=== PATIENT | female | born 1950 | race Caucasian/White ===

== ENCOUNTER → 2017-03-24 | Outpatient (CLI) | payer MEDICARE, OTHER ==
[~2017-03-24] MED LIST: DICL50TA4 PO
--- NOTE | 2017-03-24 13:58 | Diagnostic Imaging Report ---
PROCEDURE: US Thyroid. TECHNIQUE: Multiple real-time grayscale images were obtained of the thyroid in various projections. INDICATION: Thyroid ultrasound. FINDINGS: The previous thyroid ultrasound exam of 02/19/2016 noted a nonspecific 0.8 x 0.5 x 0.7 CM hypoechoic nodule in the mid portion of the left lobe. This finding seems similar to the outside study performed on 08/12/2015. On this exam, that finding is again evident and does not appear to have changed significantly. This area now measures 0.8 x 0.5 x 0.6 cm. The thyroid gland is otherwise homogeneous. The thyroid gland is not enlarged with the right lobe measuring 4.6 x 1.7 x 1.5 cm and the left lobe estimated to be 4.3 x 1.0 x 1.3 cm (normal gland size 4-5 x 2 x 2 CM or less). IMPRESSION: 1. The small hypoechoic nodule in the mid portion of the left lobe of the thyroid seen previously is again evident and appears stable. Most likely, this is a benign process. If further evaluation is desired, then a followup exam in one year would be recommended. 2. The overall appearance of the thyroid gland is otherwise stable. No new abnormality has developed. Dictated by: Dictated on workstation # [id number]
== END ==
LOC: RAD 12:11
PROVIDERS: ATTEND Family Medicine
DX: E04.1 Nontoxic single thyroid nodule (principal)
CPT/HCPCS: 76536

== ENCOUNTER → 2017-05-04 | Outpatient (CLI) | payer MEDICARE, OTHER ==
[~2017-05-04] MED LIST changes: +GADOBUTROL 10 MMOL/10 ML (GADAVIST) VIAL IV ONE
--- NOTE | 2017-05-04 15:54 | Diagnostic Imaging Report ---
PROCEDURE: MR imaging of the brain with and without contrast. TECHNIQUE: Multiplanar, multisequence MR imaging of the brain was performed with and without contrast. INDICATION: Severe headache, encephalitis. History of Lyme disease. Heat sensation on the top of the head and severe headache and numbness. 9 mL of Gadavist is administered intravenously. COMPARISON: Correlation with MRI from 11/30/2011 is reviewed. FINDINGS: The brain demonstrates no diffusion restriction to suggest an acute infarct or other diffusion abnormality. There is very minimal periventricular white matter T2 hyperintense signal abnormalities which relate to mild chronic microvascular ischemic changes. The brainstem and cerebellum demonstrate normal signal. No significant demyelinating lesions, brain edema or enhancing mass is identified. The lateral ventricles are normal in size. The pituitary gland is normal in size. No hypothalamic or pineal region mass. The central vascular flow-voids appear grossly unremarkable. The internal auditory canals and inner ear structures appear unremarkable. The paranasal sinuses and orbits appear grossly unremarkable. IMPRESSION: No acute infarct. No enhancing mass. Dictated by: Dictated on workstation # [id number]
== END ==
LOC: RAD 13:56
PROVIDERS: ATTEND Family Medicine
DX: R51 Headache (principal); R20.2 Paresthesia of skin
CPT/HCPCS: 70553

== ENCOUNTER → 2017-05-10 | Outpatient (CLI) | payer MEDICARE, OTHER ==
[~2017-05-10] MED LIST changes: -GADOBUTROL 10 MMOL/10 ML (GADAVIST) VIAL IV ONE
--- NOTE | 2017-05-11 08:54 | Diagnostic Imaging Report ---
Bilateral screening mammogram 2D views with tomosynthesis The current study was also evaluated with a Computer Aided Detection (CAD) system. Indication: Screening. No current complaints stated on the questionnaire. COMPARISON: 05/07/16. FINDINGS: The breasts are composed of scattered fibroglandular densities. There are occasional benign-appearing calcifications seen. There is a focal asymmetry in the lateral aspect of the left breast with increased density compared to the prior exams. It persists on tomographic views with no definitive mass. The right breast demonstrate no significant change. IMPRESSION: Lateral left breast focal asymmetry with increased density compared to the prior exam is indeterminate. Focal compression views evaluation and ultrasound is recommended. BI-RADS 0. ACR BI-RADS Category 0: Incomplete. (Needs additional imaging evaluation). Result letter will be mailed to the patient. Note: At least 10% of breast cancer is not imaged by mammography. Dictated by: Dictated on workstation # [id number]
== END ==
LOC: RAD 14:56
PROVIDERS: ATTEND Family Medicine
DX: Z12.31 Encounter for screening mammogram for malignant neoplasm of breast (principal); N64.89 Other specified disorders of breast
CPT/HCPCS: 77067

== ENCOUNTER → 2017-05-19 | Outpatient (CLI) | payer MEDICARE, OTHER ==
--- NOTE | 2017-05-19 15:32 | Diagnostic Imaging Report ---
EXAMINATION: Left breast diagnostic mammogram. Tomography was also performed. The current study was also evaluated with a Computer Aided Detection (CAD) system. INDICATION: Asymmetry along the outer aspect of the left breast. FINDINGS: The left breast demonstrates a focal asymmetry in the outer aspect which was evaluated with a true lateral view and focal compression views with tomography. No definitive underlying lesion is seen and this appears to relate to summation artifact of parenchyma. IMPRESSION: The focal asymmetry in the outer aspect of the left breast is felt to be summation artifact of parenchyma. An ultrasound evaluation is pending. ACR BI-RADS Category 0: Incomplete. (Needs additional imaging evaluation). Result letter will be mailed to the patient. Note: At least 10% of breast cancer is not imaged by mammography. Dictated by: Dictated on workstation # [id number]
--- NOTE | 2017-05-19 15:34 | Diagnostic Imaging Report ---
EXAMINATION: Left breast ultrasound. INDICATION: Outer left breast focal asymmetry. FINDINGS: No underlying abnormality when the area around the outer left breast is scanned. IMPRESSION: Negative study. The focal asymmetry in the outer aspect of the left breast is probably summation artifact of parenchyma. A 6 month followup mammogram is recommended to ensure stability or resolution. ACR BI-RADS Category 3: Probably benign findings. Result letter will be mailed to the patient. Note: At least 10% of breast cancer is not imaged by mammography. Dictated by: Dictated on workstation # [id number]
== END ==
LOC: RAD 12:57
PROVIDERS: ATTEND Family Medicine
DX: N64.89 Other specified disorders of breast (principal)
CPT/HCPCS: 76642

== ENCOUNTER → 2017-10-25 | Outpatient (CLI) | payer MEDICARE, OTHER ==
--- NOTE | 2017-10-25 13:41 | Diagnostic Imaging Report ---
Indication: Left breast density. The patient presents for six-month followup. Correlation is made with prior mammograms from 05/10/2017 and 05/19/2017. CC, MLO and mediolateral 3D tomography of the left breast was performed. The focal asymmetry in the lateral left breast best seen on the cc view is stable and most likely represents fibroglandular tissue. No discrete mass is identified. No suspicious microcalcifications are identified. The left axilla is unremarkable. Impression: BI-RADS category 1. No suspicious mammographic abnormality is identified. The area of asymmetry outer left breast appears to represent superimposed fibroglandular tissue. She will return in 6 months for bilateral screening mammography. ACR BI-RADS Category 1: Negative. Result letter will be mailed to the patient. Note: At least 10% of breast cancer is not imaged by mammography. Dictated by: Dictated on workstation # [id number]
== END ==
LOC: RAD 13:14
PROVIDERS: ATTEND Family Medicine
DX: R92.8 Other abnormal and inconclusive findings on diagnostic imaging of breast (principal)

== ENCOUNTER → 2018-02-18 | Outpatient (CLI) | payer MEDICARE, OTHER ==
--- NOTE | 2018-02-18 12:53 | Diagnostic Imaging Report ---
INDICATION: Left neck fullness. Right lobe of the thyroid measures 4.0 x 1.6 x 1.5 cm and the left lobe measures 3.5 x 1.2 x 1.2 cm. Subcentimeter thyroid nodules are present. A circumscribed hypoechoic nodule left lobe measures 8 mm x 5 mm x 7 mm. No associated microcalcifications are seen. A nodule in the right aspect of the isthmus measures 6 mm x 8 mm. No microcalcifications are seen. No other abnormalities are detected. IMPRESSION: Bilateral subcentimeter thyroid nodules. No dominant thyroid mass is detected. Dictated by: Dictated on workstation # [id number]
--- NOTE | 2018-02-18 12:54 | Diagnostic Imaging Report ---
PROCEDURE: US carotid duplex, bilateral. TECHNIQUE: Multiple real-time grayscale images were obtained over the carotid arteries in various projections, bilaterally. Additional duplex Doppler and color Doppler images were also obtained. INDICATION: Memory loss and mental status changes. FINDINGS: There is mild plaquing identified in the proximal left ICA. The right carotid system is unremarkable. The velocities are normal bilaterally. No velocity elevation or stenosis is seen. Both vertebral arteries demonstrate antegrade flow. IMPRESSION: No evidence of a hemodynamically significant stenosis. Parameters based on the consensus panel Barroso-Scale and Doppler ultrasound criteria published May 2003, Radiology, Volume 229. DOPPLER (peak systolic velocity M/S Right Left CCA .64 .89 ICA Proximal .61 .43 ICA Mid .65 .59 ICA Distal .59 .83 RATIO 1.0 .9 ECA .88 .70 VERT .33 .38 Dictated by: Dictated on workstation # [id number]
== END ==
LOC: RAD 11:39
PROVIDERS: ATTEND Family Medicine
DX: E04.2 Nontoxic multinodular goiter (principal); R41.3 Other amnesia
CPT/HCPCS: 76536; 93880

== ENCOUNTER → 2018-03-28 | Outpatient (CLI) | payer MEDICARE, OTHER ==
[~2018-03-28] MED LIST changes: +IOHEXOL 350 MG/ML 100 ML (OMNIPAQUE 350) VIAL IV ONE; +NS 250 ML (IVPB) BAG IV ONE
--- NOTE | 2018-03-28 13:54 | Diagnostic Imaging Report ---
PROCEDURE: CT head with and without contrast. TECHNIQUE: Multiple contiguous axial images were obtained through the brain before and after the administration of intravenous contrast. INDICATION: Memory loss with headache and blurred vision. COMPARISON: No prior studies are available for comparison. FINDINGS: The ventricles and sulci are within normal limits. No sulcal effacement, midline shift, or hemorrhage is detected. No abnormal enhancement following contrast administration is seen. The cisterns are patent. Visualized paranasal sinuses are clear. IMPRESSION: Unremarkable pre and post contrast CT of the brain. Dictated by: Dictated on workstation # [id number]
== END ==
LOC: RAD 12:59
PROVIDERS: ATTEND Physician Assistant
DX: R51 Headache (principal); R41.3 Other amnesia; H53.8 Other visual disturbances; R41.82 Altered mental status, unspecified; Z86.19 Personal history of other infectious and parasitic diseases
CPT/HCPCS: 70470

== ENCOUNTER → 2018-04-21 | Outpatient (CLI) | payer MEDICARE, OTHER ==
[~2018-04-21] MED LIST changes: -IOHEXOL 350 MG/ML 100 ML (OMNIPAQUE 350) VIAL IV ONE; -NS 250 ML (IVPB) BAG IV ONE
--- NOTE | 2018-04-21 18:57 | Diagnostic Imaging Report ---
INDICATION: Routine screening. COMPARISON: Comparison is made with prior mammogram from 05/10/2017 and 05/07/2016. TECHNIQUE: 2D and 3D bilateral screening mammography was performed with CAD. FINDINGS: Scattered fibroglandular densities are identified bilaterally. The parenchymal pattern is stable. No mass or malignant appearing microcalcifications are seen. The axillae are unremarkable. IMPRESSION: No mammographic features suspicious for malignancy are identified. ACR BI-RADS Category 1: Negative. Result letter will be mailed to the patient. Note: At least 10% of breast cancer is not imaged by mammography. Dictated by: Dictated on workstation # [id number]
== END ==
LOC: RAD 14:06
PROVIDERS: ATTEND Physician Assistant
DX: Z12.31 Encounter for screening mammogram for malignant neoplasm of breast (principal)
CPT/HCPCS: 77067

== ENCOUNTER 2018-05-27 07:48 | Emergency (ER) | payer MEDICARE, OTHER ==
[~2018-05-27] VITALS: Ht 162.6 cm; Wt 86.2 kg
--- OUTSIDE RECORDS SUMMARY | 2018-05-27 08:12 | XMS REPORT | Continuity of Care Document ---
Author Author [facility] Organization [facility] Address Unknown Phone Unavailable Allergies Active Description Code Type Severity Reaction Onset Reported/Identified Relationship to Patient Clinical Status Yes amoxicillin [id number] Drug Allergy Severe N/A 09/23/2015 Yes clavulanic acid [id number] Drug Allergy Severe N/A 09/23/2015 Yes potato [id number] Drug Allergy Severe N/A 09/23/2015 Yes egg [id number] Drug Allergy Mild N/A 09/23/2015 Yes erythromycin base [id number] Drug Allergy Mild N/A 09/23/2015 Medications There is no data. Problems Date Dx Coded Attending Type Code Diagnosis Diagnosed By 09/23/2015 Ot 785.1 09/23/2015 Ot 298.9 09/23/2015 Ot 780.93 09/23/2015 Ot 784.3 09/23/2015 Ot 298.9 09/23/2015 Ot 780.93 09/23/2015 Ot 784.3 09/23/2015 MARY BETH TADEO DO Ot S80.01XA CONTUSION OF RIGHT KNEE, INITIAL ENCOUNT 09/23/2015 MARY BETH TADEO DO Ot W01.0XXA FALL SAME LEV FROM SLIP/TRIP W/O STRIKE 09/23/2015 MARY BETH TADEO DO Ot Y92.[address] [facility] [address] [facility] 09/23/2015 MARY BETH TADEO DO Ot Y99.8 OTHER EXTERNAL CAUSE STATUS 09/23/2015 Ot 785.1 09/23/2015 Ot 298.9 09/23/2015 Ot 780.93 09/23/2015 Ot 784.3 09/23/2015 Ot 298.9 09/23/2015 Ot 780.93 09/23/2015 Ot 784.3 11/05/2015 Ot 785.1 PALPITATIONS 11/05/2015 Ot 298.9 PSYCHOSIS NOS 11/05/2015 Ot 780.93 MEMORY LOSS 11/05/2015 Ot 784.3 APHASIA 11/05/2015 Ot 298.9 PSYCHOSIS NOS 11/05/2015 Ot 780.93 MEMORY LOSS 11/05/2015 Ot 784.3 APHASIA 02/19/2016 Ot 785.1 PALPITATIONS 02/19/2016 Ot 298.9 PSYCHOSIS NOS 02/19/2016 Ot 780.93 MEMORY LOSS 02/19/2016 Ot 784.3 APHASIA 02/19/2016 Ot 298.9 PSYCHOSIS NOS 02/19/2016 Ot 780.93 MEMORY LOSS 02/19/2016 Ot 784.3 APHASIA 02/20/2016 АНДРЕЙ JADE, SOMMER Loar Ot E04.1 NONTOXIC SINGLE THYROID NODULE 02/20/2016 АНДРЕЙ JADE, SOMMER L Ot R22.31 LOCALIZED SWELLING, MASS AND LUMP, RIGHT 02/28/2016 SOMMER CHIANG MD Ot E04.1 NONTOXIC SINGLE THYROID NODULE 02/28/2016 SOMMER CHIANG MD Ot R22.31 LOCALIZED SWELLING, MASS AND LUMP, RIGHT 03/13/2016 SOMMER CHIANG MD Ot E04.1 NONTOXIC SINGLE THYROID NODULE 03/13/2016 SOMMER CHIANG MD Ot R22.31 LOCALIZED SWELLING, MASS AND LUMP, RIGHT 05/07/2016 Ot 785.1 PALPITATIONS 05/07/2016 Ot 298.9 PSYCHOSIS NOS 05/07/2016 Ot 780.93 MEMORY LOSS 05/07/2016 Ot 784.3 APHASIA 05/07/2016 Ot 298.9 PSYCHOSIS NOS 05/07/2016 Ot 780.93 MEMORY LOSS 05/07/2016 Ot 784.3 APHASIA 05/07/2016 SOMMER CHIANG MD Ot E04.1 NONTOXIC SINGLE THYROID NODULE 05/07/2016 SOMMER CHIANG MD Ot R22.31 LOCALIZED SWELLING, MASS AND LUMP, RIGHT 05/07/2016 SOMMER CHIANG MD Ot Z12.31 ENCNTR SCREEN MAMMOGRAM FOR MALIGNANT NE 05/07/2016 SOMMER CHIANG MD Ot Z12.31 ENCNTR SCREEN MAMMOGRAM FOR MALIGNANT NE 05/18/2016 SOMMER CHIANG MD Ot Z12.31 ENCNTR SCREEN MAMMOGRAM FOR MALIGNANT NE 04/14/2017 SOMMER CHIANG MD Ot E04.1 NONTOXIC SINGLE THYROID NODULE 04/30/2017 SOMMER CHIANG MD Ot E04.1 NONTOXIC SINGLE THYROID NODULE 05/05/2017 SOMMER CHIANG MD L Ot R20.2 PARESTHESIA OF SKIN 05/05/2017 SOMMER CHIANG MD L Ot R51 HEADACHE 05/11/2017 SOMMER CHIANG MD L Ot R92.2 INCONCLUSIVE MAMMOGRAM 05/17/2017 SOMMER CHIANG MD Ot R92.2 INCONCLUSIVE MAMMOGRAM 05/20/2017 SOMMER CHIANG MD L Ot N64.89 OTHER SPECIFIED DISORDERS OF BREAST 05/26/2017 SOMMER CHIANG MD L Ot R20.2 PARESTHESIA OF SKIN 05/26/2017 SOMMER CHIANG MD L Ot R51 HEADACHE 06/01/2017 SOMMER CHIANG MD L Ot N64.89 OTHER SPECIFIED DISORDERS OF BREAST 06/01/2017 SOMMER CHIANG MD L Ot Z12.31 ENCNTR SCREEN MAMMOGRAM FOR MALIGNANT NE 06/11/2017 SOMMER CHIANG MD L Ot N64.89 OTHER SPECIFIED DISORDERS OF BREAST 06/14/2017 SOMMER CHIANG MD L Ot R20.2 PARESTHESIA OF SKIN 06/14/2017 SOMMER CHIANG MD L Ot R51 HEADACHE 07/02/2017 SOMMER CHIANG MD L Ot N64.89 OTHER SPECIFIED DISORDERS OF BREAST 10/19/2017 SOMMER CHIANG MD Ot R92.8 OTH ABN AND INCONCLUSIVE FINDINGS ON DX 10/26/2017 SOMMER CHIANG MD L Ot N64.89 OTHER SPECIFIED DISORDERS OF BREAST 10/26/2017 SOMMER CHIANG MD L Ot R92.8 OTH ABN AND INCONCLUSIVE FINDINGS ON DX 11/16/2017 SOMMER CHIANG MD L Ot R92.8 OTH ABN AND INCONCLUSIVE FINDINGS ON DX 03/29/2018 CHAN JAUREGUI Ot H53.8 OTHER VISUAL DISTURBANCES 03/29/2018 CHAN JAUREGUI Ot R41.3 OTHER AMNESIA 03/29/2018 CHAN JAUREGUI Ot R41.82 ALTERED MENTAL STATUS, UNSPECIFIED 03/29/2018 CHAN JAUREGUI L Ot R51 HEADACHE 03/29/2018 CHAN JAUREGUI L Ot Z86.19 PERSONAL HISTORY OF OTHER INFECTIOUS AND 04/07/2018 SOMMER CHIANG MD Ot E04.2 NONTOXIC MULTINODULAR GOITER 04/07/2018 SOMMER CHIANG MD Ot R41.3 OTHER AMNESIA 04/19/2018 CHAN JAUREGUI Ot Z12.31 ENCNTR SCREEN MAMMOGRAM FOR MALIGNANT NE 04/27/2018 CHAN JAUREGUI Ot Z12.31 ENCNTR SCREEN MAMMOGRAM FOR MALIGNANT NE 05/05/2018 SOMMER CHIANG MD Ot E04.2 NONTOXIC MULTINODULAR GOITER 05/05/2018 SOMMER CHIANG MD Ot R41.3 OTHER AMNESIA 05/16/2018 CHAN JAUREGUI Ot Z12.31 ENCNTR SCREEN MAMMOGRAM FOR MALIGNANT NE 05/20/2018 CHAN JAUREGUI Ot H53.8 OTHER VISUAL DISTURBANCES 05/20/2018 CHAN JAUREGUI Ot R41.3 OTHER AMNESIA 05/20/2018 CHAN JAUREGUI L Ot R41.82 ALTERED MENTAL STATUS, UNSPECIFIED 05/20/2018 CHAN JAUREGUI Ot R51 HEADACHE 05/20/2018 CHAN JAUREGUI Ot Z86.19 PERSONAL HISTORY OF OTHER INFECTIOUS AND Procedures There is no data. Results There is no data. Encounters ACCT No. Visit Date/Time Discharge Status Pt. Type Provider Facility Loc./Unit Complaint [id number] 04/21/2018 14:06:00 04/21/2018 23:59:59 CLS Outpatient CHAN JAUREGUI [facility] RAD SCREENING [id number] 03/28/2018 12:59:00 03/28/2018 23:59:59 CLS Outpatient CHAN JAUREGUI [facility] RAD HEADACHES,AMS,H/O LYMES [id number] 02/15/2018 14:12:00 02/15/2018 23:59:59 CLS Outpatient SOMMER CHIANG MD [facility] RAD LEFT NECK FULLNESS, MENTAL STATUS CHANGE [id number] 10/25/2017 13:14:00 10/25/2017 23:59:59 CLS Outpatient SOMMER CHIANG MD [facility] RAD R928 [id number] 05/19/2017 12:57:00 05/19/2017 23:59:59 CLS Outpatient SOMMER CHIANG MD [facility] RAD ABNORMAL MAMMO [id number] 05/10/2017 14:56:00 05/10/2017 23:59:59 CLS Outpatient SOMMER CHIANG MD [facility] RAD SCREENING [id number] 05/04/2017 13:56:00 05/04/2017 23:59:59 CLS Outpatient SOMMER CHIANG MD [facility] RAD SEVERE HEADACH X 4 DAYS,NUMBNESS OF FACE [id number] 03/24/2017 12:11:00 03/24/2017 23:59:59 CLS Outpatient SOMMER CHIANG MD [facility] RAD THYROID NODULE [id number] 05/07/2016 10:51:00 05/07/2016 23:59:59 CLS Outpatient SOMMER CHIANG MD [facility] RAD SCREENING [id number] 02/19/2016 12:31:00 02/19/2016 23:59:59 CLS Outpatient SOMMER CHIANG MD [facility] RAD AXILLA NODULE [id number] 09/23/2015 14:13:00 09/23/2015 15:56:00 DIS Emergency MARY BETH TADEO DO [facility] ER KNEE PAIN FROM FALL [id number] 05/27/2018 07:49:00 ACT Emergency YONY MARISCAL MD [facility] ER DIZZINESS [id number] 11/30/2011 09:41:00 Document Registration [id number] 11/26/2011 12:20:00 Document Registration [id number] 01/26/2011 10:07:00 Document Registration
[2018-05-27 09:24] LABS: BILIRUBIN,URINE NEGATIVE (NEGATIVE); CLARITY,URINE CLEAR; COLOR,URINE YELLOW; GLUCOSE, URINE (UA) NEGATIVE (NEGATIVE); KETONES,URINE NEGATIVE (NEGATIVE); LEUKOCYTE ESTERASE ,URINE NEGATIVE (NEGATIVE); NITRITE,URINE NEGATIVE (NEGATIVE); PH,URINE 7 (5-9); PROTEIN,URINE NEGATIVE (NEGATIVE); UROBILINOGEN,URINE NORMAL (NORMAL)
[2018-05-27 09:30] LABS: BACTERIA,URINE NEGATIVE /HPF; RBC,URINE 0-2 /HPF
[2018-05-27 09:56] LABS: BASOPHILS % (AUTO) 0 % (0-10); EOSINOPHILS # (AUTO) 0.2 10^3/uL (0.0-0.3); EOSINOPHILS % (AUTO) 2 % (0-10); HEMATOCRIT 46 % (35-52); HEMOGLOBIN 14.6 G/DL (11.5-16.0); LYMPHOCYTES # (AUTO) 1.1 X 10^3 (1.0-4.0); LYMPHOCYTES % (AUTO) 14 % (12-44); MEAN CORPUSCULAR HEMOGLOBIN 30 PG (25-34); MEAN CORPUSCULAR HGB CONC 32 G/DL (32-36); MEAN CORPUSCULAR VOLUME 93 FL (80-99); MEAN PLATELET VOLUME 11.9 FL (7.4-10.4); MONOCYTES # (AUTO) 0.3 X 10^3 (0.0-1.0); MONOCYTES % (AUTO) 4 % (0-12); NEUTROPHILS # (AUTO) 6.1 X 10^3 (1.8-7.8); NEUTROPHILS % (AUTO) 79 % (42-75); PLATELET COUNT 261 10^3/uL (130-400); RED BLOOD COUNT 4.92 10^6/uL (4.35-5.85); WHITE BLOOD COUNT 7.7 10^3/uL (4.3-11.0)
[2018-05-27 10:11] LABS: ALANINE AMINOTRANSFERASE 21 U/L (0-55); ALKALINE PHOSPHATASE 70 U/L (40-136); BILIRUBIN,TOTAL 0.4 MG/DL (0.1-1.0); BUN/CREATININE RATIO 28; CALCIUM 9.6 MG/DL (8.5-10.1); CARBON DIOXIDE 24 MMOL/L (21-32); CHLORIDE 108 MMOL/L (98-107); CREATININE SERUM 0.58 MG/DL (0.60-1.30); GFR ESTIMATED > 60; GLUCOSE 150 MG/DL (70-105); SODIUM 141 MMOL/L (135-145)
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
[2018-05-27] MEDS ORDERED: Antivert (10:49)
[2018-05-27 11:05] VITALS: BP 143/78
== END 2018-05-27 11:00 | disposition home or self-care (01) ==
LOC: EDUNIT# 07:48 → ER 07:49
DX: R42 Dizziness and giddiness (principal); Z88.0 Allergy status to penicillin; Z88.8 Allergy status to other drugs, medicaments and biological substances
CPT/HCPCS: 36415; 80053; 81000; 85025; 99283

== ENCOUNTER → 2018-06-02 | Outpatient (CLI) | payer MEDICARE, OTHER ==
[~2018-06-02] MED LIST changes: +Antivert; +IOHEXOL 350 MG/ML 100 ML (OMNIPAQUE 350) VIAL IV ONE; +NS 250 ML (IVPB) BAG IV ONE; +RECEIVED CONTRAST (Hold Metformin) IV SCH
[2018-06-02 13:12] LABS: BASOPHILS % (AUTO) 0 % (0-10); EOSINOPHILS # (AUTO) 0.3 10^3/uL (0.0-0.3); EOSINOPHILS % (AUTO) 3 % (0-10); HEMATOCRIT 46 % (35-52); HEMOGLOBIN 14.8 G/DL (11.5-16.0); LYMPHOCYTES # (AUTO) 1.6 X 10^3 (1.0-4.0); LYMPHOCYTES % (AUTO) 16 % (12-44); MEAN CORPUSCULAR HEMOGLOBIN 30 PG (25-34); MEAN CORPUSCULAR HGB CONC 32 G/DL (32-36); MEAN CORPUSCULAR VOLUME 94 FL (80-99); MEAN PLATELET VOLUME 11.4 FL (7.4-10.4); MONOCYTES # (AUTO) 0.6 X 10^3 (0.0-1.0); MONOCYTES % (AUTO) 6 % (0-12); NEUTROPHILS # (AUTO) 7.7 X 10^3 (1.8-7.8); NEUTROPHILS % (AUTO) 75 % (42-75); PLATELET COUNT 275 10^3/uL (130-400); RED BLOOD COUNT 4.92 10^6/uL (4.35-5.85); RED CELL DISTRIBUTION WIDTH 13.7 % (10.0-14.5); WHITE BLOOD COUNT 10.2 10^3/uL (4.3-11.0)
[2018-06-02 13:47] LABS: ALANINE AMINOTRANSFERASE 23 U/L (0-55); ALBUMIN 4.1 GM/DL (3.2-4.5); ALKALINE PHOSPHATASE 73 U/L (40-136); BILIRUBIN,TOTAL 0.4 MG/DL (0.1-1.0); BUN/CREATININE RATIO 29; CALCIUM 9.4 MG/DL (8.5-10.1); CARBON DIOXIDE 29 MMOL/L (21-32); CHLORIDE 105 MMOL/L (98-107); CREATININE SERUM 0.77 MG/DL (0.60-1.30); GFR ESTIMATED > 60; GLUCOSE 118 MG/DL (70-105); POTASSIUM 4.6 MMOL/L (3.6-5.0); SODIUM 142 MMOL/L (135-145); TOTAL PROTEIN 6.6 GM/DL (6.4-8.2)
[2018-06-02 13:50] LABS: ERYTHROCYTE SEDIMENTATION RATE 4 MM/HR (0-30)
--- NOTE | 2018-06-02 14:22 | Diagnostic Imaging Report ---
INDICATION: Dizziness and headache on the left-side as well as memory loss. CT HEAD: Comparison is made with prior CT of the head from 03/28/2018. The ventricles and sulci are within normal limits. No effacement, midline shift or hemorrhage is detected. Cisterns are patent. The visualized paranasal sinuses are clear. Mastoid air cells are well aerated. No abnormal enhancement is seen following contrast administration. IMPRESSION: Unremarkable pre- and postcontrast CT of the brain. CT NECK: Posterior nasopharynx and oropharynx are unremarkable. Parapharyngeal fat planes are within normal limits. Epiglottis and larynx are unremarkable. No thyroid mass is detected. Bilateral submandibular and parotid glands are symmetric. No cervical lymphadenopathy is seen. No fluid collections are identified. IMPRESSION: Unremarkable CT of the soft tissues of the neck. Dictated by: Dictated on workstation # [id number]
== END ==
LOC: RAD 12:52
PROVIDERS: ATTEND Physician Assistant
DX: R51 Headache (principal); R42 Dizziness and giddiness; R41.3 Other amnesia; R53.83 Other fatigue
CPT/HCPCS: 36415; 70470; 70492; 80053; 85025; 85652; 86141

== ENCOUNTER → 2018-06-17 | Outpatient (CLI) | payer MEDICARE, OTHER ==
[~2018-06-17] MED LIST changes: +GADOBUTROL 10 MMOL/10 ML (GADAVIST) VIAL IV ONE; -IOHEXOL 350 MG/ML 100 ML (OMNIPAQUE 350) VIAL IV ONE; -NS 250 ML (IVPB) BAG IV ONE; -RECEIVED CONTRAST (Hold Metformin) IV SCH
--- NOTE | 2018-06-17 18:11 | Diagnostic Imaging Report ---
INDICATION: Memory loss and dizziness and abnormal sensation. MRI brain obtained pre and post IV contrast. Comparison made with 05/04/2017. Diffusion-weighted images demonstrate no areas of signal abnormality. There are no extra-axial fluid collections. No intracranial hemorrhage. No intracranial mass or mass effect. No midline shift. The ventricles are normal in size and position. FLAIR images demonstrate no evidence of significant white matter disease. There is no evidence of recent or old hemorrhage. Post contrast images demonstrate no abnormal enhancing lesions. IMPRESSION: Negative MRI brain pre and post IV contrast. The findings have not changed compared with 05/04/2017. Dictated by: Dictated on workstation # [id number]
--- NOTE | 2018-06-17 18:29 | Diagnostic Imaging Report ---
PROCEDURE: MR angiography neck with and without contrast. TECHNIQUE: Pre and post contrast-enhanced MR angiography of the neck was performed. Source data was reformatted into rotating MIP projections. INDICATION: Memory loss, dizziness, and tunnel vision. FINDINGS: The aortic arch appears unremarkable. The subclavian arteries are unremarkable. The vertebral arteries bilaterally appear unremarkable. The bilateral common carotids are unremarkable. The carotid bifurcations are patent. The cervical internal carotid arteries are unremarkable. IMPRESSION: Unremarkable MRA neck. Dictated by: Dictated on workstation # [id number]
--- NOTE | 2018-06-17 18:30 | Diagnostic Imaging Report ---
PROCEDURE: MR angiography of the brain without the use of contrast. TECHNIQUE: 3D jdbu-[id number] MR angiography of the head was performed. Source data was reformatted into rotating MIP projections. INDICATION: Memory loss, dizziness, tunnel vision, [place] spotted fever. COMPARISON: Exam correlated with head CT, contrast assisted, 06/02/2018. Study also compared with brain MRI 05/04/2017. FINDINGS: The distal vertebrals, the basilar, and the customs opener verifier packer are unremarkable. Intracranial ICAs are unremarkable. The A1 segments, the A-comm, and the anterior cerebral arteries appear unremarkable. The bilateral middle cerebral arteries and their primary branches appear unremarkable. IMPRESSION: Unremarkable MRA head. Dictated by: Dictated on workstation # [id number]
== END ==
LOC: RAD 15:41
PROVIDERS: ATTEND Physician Assistant
DX: A77.0 Spotted fever due to Rickettsia rickettsii (principal); H53.489 Generalized contraction of visual field, unspecified eye; R53.83 Other fatigue; R41.3 Other amnesia
CPT/HCPCS: 70544; 70549; 70553

== ENCOUNTER → 2018-09-30 | Outpatient (CLI) | payer MEDICARE, OTHER ==
[~2018-09-30] MED LIST changes: -GADOBUTROL 10 MMOL/10 ML (GADAVIST) VIAL IV ONE
--- NOTE | 2018-09-30 13:11 | Diagnostic Imaging Report ---
PROCEDURE: US Thyroid. TECHNIQUE: Multiple real-time grayscale images were obtained of the thyroid in various projections. INDICATION: Left thyroid nodule. Correlation is made with prior thyroid ultrasound from 02/18/2018. The right lobe of the thyroid measures 4.1 x 1.5 x 1.5 cm and the left lobe measures 3.7 x 1.5 x 1.2 cm. Isthmus is approximately 5 mm in thickness. There is a nodule in the isthmus measuring approximately 6 mm x 8 mm, stable. Nodule in the left lobe measures 7 mm x 6 mm, similar to prior. No microcalcifications are seen. No new mass is detected. IMPRESSION: Stable subcentimeter thyroid nodules when compared examination from 02/18/2018. No dominant thyroid mass is detected. Dictated by: Dictated on workstation # [id number]
== END ==
LOC: RAD 11:11
PROVIDERS: ATTEND Physician Assistant
DX: E04.2 Nontoxic multinodular goiter (principal)
CPT/HCPCS: 76536

== ENCOUNTER → 2019-04-24 | Outpatient (CLI) | payer MEDICARE, OTHER ==
--- NOTE | 2019-04-24 12:13 | Diagnostic Imaging Report ---
INDICATION: Routine screening. COMPARISON: Comparison is made with prior mammograms from 04/21/2018 and 05/10/2017. TECHNIQUE: 2-D and 3-D bilateral screening mammography was performed. The current study was also evaluated with a Computer Aided Detection (CAD) system. 3-D tomosynthesis was also performed and reviewed. FINDINGS: Scattered fibroglandular densities are identified bilaterally. Benign calcifications are noted bilaterally. No mass or malignant-appearing microcalcifications are seen. The axillae are unremarkable. IMPRESSION: No mammographic features suspicious for malignancy are identified. ACR BI-RADS Category 2: Benign findings. Result letter will be mailed to the patient. Note: At least 10% of breast cancer is not imaged by mammography. Dictated by: Dictated on workstation # [id number]
== END ==
LOC: RAD 10:52
PROVIDERS: ATTEND Family Medicine
DX: Z12.31 Encounter for screening mammogram for malignant neoplasm of breast (principal)
CPT/HCPCS: 77067

== ENCOUNTER → 2019-09-26 | Outpatient (CLI) | payer MEDICARE, OTHER ==
--- NOTE | 2019-09-26 13:01 | Diagnostic Imaging Report ---
PROCEDURE: US Thyroid. TECHNIQUE: Multiple real-time grayscale images were obtained of the thyroid in various projections. INDICATION: Thyroid nodule. COMPARISON: September 30, 2018 and February 19, 2016. FINDINGS: The right lobe of thyroid gland measures 4.6 x 2.0 x 1.7 cm. It maintains a homogeneous echotexture without discrete nodule. The left lobe of thyroid gland measures 4.0 x 1.8 x 1.2 cm. A 0.8 x 0.6 x 0.5 cm ovoid hypoechoic nodule is noted within the mid left thyroid lobe, unchanged since 2016, and benign. No new nodules within the left thyroid lobe. 0.7 x 0.8 cm hypoechoic nodule within the isthmus is again identified, appearing stable to minimally more prominent than the prior examination. No new thyroid nodules. IMPRESSION: Subcentimeter isthmic thyroid nodule appears stable to slightly more prominent than the prior examination. Therefore, recommend a follow-up ultrasound in one year to reevaluate. Subcentimeter left thyroid nodule is unchanged since 2016 and benign. No new thyroid nodules. Dictated by: Dictated on workstation # [id number]
== END ==
LOC: RAD 10:52
PROVIDERS: ATTEND Family Medicine
DX: E04.2 Nontoxic multinodular goiter (principal)
CPT/HCPCS: 76536

== ENCOUNTER → 2020-04-25 | Outpatient (CLI) | payer MEDICARE, OTHER ==
--- NOTE | 2020-04-25 12:56 | Diagnostic Imaging Report ---
INDICATION: Routine screening. Comparison is made with prior mammogram from 04/24/2019 and 04/21/2018. 2-D and 3-D bilateral screening mammography was performed with CAD. Scattered fibroglandular densities are identified bilaterally. The parenchymal pattern is stable. No mass or malignant appearing microcalcifications are seen. Occasional benign calcifications are noted. Axillae are unremarkable. IMPRESSION: BI-RADS Category 2 No mammographic features suspicious for malignancy are identified. ACR BI-RADS Category 2: Benign findings. Result letter will be mailed to the patient. Note: At least 10% of breast cancer is not imaged by mammography. Dictated by: Dictated on workstation # [id number]
== END ==
LOC: RAD 10:39
PROVIDERS: ATTEND Family Medicine
DX: Z12.31 Encounter for screening mammogram for malignant neoplasm of breast (principal)
CPT/HCPCS: 77063; 77067

== ENCOUNTER 2020-06-14 20:06 | Emergency (ER) | payer MEDICARE, OTHER ==
[~2020-06-14] VITALS: Ht 157.5 cm; Wt 104.3 kg
[2020-06-14] MEDS ORDERED: NS IV 1000 ML 1,000 ML IV SCH (20:30)
[2020-06-14 20:40] LABS: BASOPHILS # (AUTO) 0.1 10^3/uL (0.0-0.1); BASOPHILS % (AUTO) 0 % (0-10); EOSINOPHILS # (AUTO) 0.3 10^3/uL (0.0-0.3); EOSINOPHILS % (AUTO) 2 % (0-10); HEMATOCRIT 48 % (35-52); HEMOGLOBIN 14.9 g/dL (11.5-16.0); LYMPHOCYTES # (AUTO) 2.5 10^3/uL (1.0-4.0); LYMPHOCYTES % (AUTO) 20 % (12-44); MEAN CORPUSCULAR HEMOGLOBIN 31 pg (25-34); MEAN CORPUSCULAR HGB CONC 31 g/dL (32-36); MEAN CORPUSCULAR VOLUME 98 fL (80-99); MEAN PLATELET VOLUME 11.4 fL (9.0-12.2); MONOCYTES # (AUTO) 0.6 10^3/uL (0.0-1.0); MONOCYTES % (AUTO) 5 % (0-12); NEUTROPHILS # (AUTO) 8.6 10^3/uL (1.8-7.8); NEUTROPHILS % (AUTO) 72 % (42-75); PLATELET COUNT 353 10^3/uL (130-400)
[2020-06-14 20:49] LABS: INR 0.9 (0.8-1.4); PROTHROMBIN TIME PATIENT 12.3 SEC (12.2-14.7)
[2020-06-14 21:00] LABS: ALANINE AMINOTRANSFERASE 48 U/L (0-55); ALBUMIN 4.3 GM/DL (3.2-4.5); ALKALINE PHOSPHATASE 123 U/L (40-136); BILIRUBIN,TOTAL 0.4 MG/DL (0.1-1.0); BUN/CREATININE RATIO 21; CALCIUM 9.9 MG/DL (8.5-10.1); CARBON DIOXIDE 26 MMOL/L (21-32); CHLORIDE 101 MMOL/L (98-107); CREATININE SERUM 0.78 MG/DL (0.60-1.30); GFR ESTIMATED > 60; GLUCOSE 166 MG/DL (70-105); POTASSIUM 4.4 MMOL/L (3.6-5.0); SODIUM 142 MMOL/L (135-145); TOTAL PROTEIN 7.3 GM/DL (6.4-8.2)
--- NOTE | 2020-06-14 21:06 | ED GU-Female ---
General Chief Complaint: - Urinary Stated Complaint: FREQUENT URINATION; BLOOD IN URINE Nursing Triage Note: Pt ambulates to room #2 with c/o urinary urgency et urinary bleeding. Pt reports s/s began on this day at approx 1900. Gross hematura noted to urine sample during triage. Pt reports she was tested for COVID-19 on 06/10/20 at [facility] d/t headache et result was negative. A&OX4. Nursing Sepsis Screen: No Definite Risk Source: patient Exam Limitations: no limitations (DAREN QUINTEROS,TONI STUDENT) History of Present Illness Date Seen by Provider: Jun 14, 2020 Time Seen by Provider: 20:30 Initial Comments Patient is a 70yo female c/o frequent urination and blood in her urine that began approximately 2 hours ago. She states that around 19:00 this evening she began feeling the frequent urge to urinate, and then 30 minutes later began seeing gross blood in the urine. She then began to pass clots. She has a history of [place] Spotted Fever and Lyme disease, and presented to urgent care on 06/10 for headaches, which have resolved, and self-reports a fever, however she is afebrile at this time. She admits some burning with urination, and suprapubic pressure, but no pain. She also notes an unusual odor with urination. Denies dizziness, syncope, chest pain, palpitations, vomiting, abdominal pain, constipation, or hematochezia. She has experienced some nausea and loose stools, but states these are chronic problems and are due to her hx of tick-borne illnesses. Timing/Duration: this evening (DAREN QUINTEROS,MED STUDENT) Allergies and Home Medications Allergies Coded Allergies: amoxicillin (Verified Allergy, Severe, 05/27/18) clavulanic acid (Verified Allergy, Severe, 05/27/18) potato (Verified Allergy, Severe, 05/27/18) egg (Verified Allergy, Mild, 05/27/18) erythromycin base (Verified Allergy, Mild, 05/27/18) Home Medications Diclofenac Potassium 50 Mg Tablet, 50 MG PO Q6H PRN for knee pain/swelling Prescribed by: MARY BETH TADEO on 09/23/15 1531 [Antivert] , 25 MG 4 times a day Prescribed by: YONY MARISCAL on 05/27/18 1049 Patient Home Medication List Home Medication List Reviewed: Yes (FEMI CARTER MD) Review of Systems Review of Systems Constitutional: No chills, No dizziness, No fever, No malaise EENTM: no symptoms reported Respiratory: No cough, No short of breath, No wheezing Cardiovascular: No chest pain, No palpitations, No syncope Gastrointestinal: No abdominal pain, No constipation, No hematemesis, No melena; nausea; No vomiting Genitourinary: burning, frequency; denies flank pain; hematuria; denies pain; urgency Musculoskeletal: joint pain, muscle pain Skin: no symptoms reported Psychiatric/Neurological: No Symptoms Reported (DAREN QUINTEROS MED STUDENT) Hematologic/Lymphatic: See HPI (FEMI CARTER MD) Past Dobtlqh-Vmxypd-Nkqnke Hx Past Med/Social Hx: Reviewed Nursing Past Med/Soc Hx (FEMI CARTER MD) Patient Social History Recent Foreign Travel: No Contact w/Someone Who Travel: No Recent Infectious Disease Expo: No Recent Hopitalizations: No (DAREN QUINTEROS MED STUDENT) Seasonal Allergies Seasonal Allergies: Yes (DAREN QUINTEROS MED STUDENT) Past Medical History Respiratory: No Neurological: No Integumentary: No (DAREN QUINTEROS MED STUDENT) Physical Exam Vital Signs Vital Signs - First Documented 06/14/20 20:15 Temp 36.6 Pulse 102 Resp 18 B/P (MAP) 190/102 (131) Pulse Ox 96 O2 Delivery Room Air (FEMI CARTER MD) Vital Signs Capillary Refill : Less Than 3 Seconds (DAREN QUINTEROS MED STUDENT) Height, Weight, BMI Height: 5'4.00" Weight: 190lbs. oz. 86.248334yi; 42.00 BMI Method:Estimated General Appearance: WD/WN, no apparent distress Neck: full range of motion Cardiovascular: no edema, no murmur, tachycardia Respiratory: lungs clear, normal breath sounds, no respiratory distress, no accessory muscle use Neurologic/Psychiatric: alert, normal mood/affect, oriented x 3 Skin: normal color, warm/dry (DAREN QUINTEROS MED STUDENT) Progress/Results/Core Measures Suspected Sepsis Recent Fever Within 48 Hours: No Infection Criteria Present: Suspected New Infection New/Unexplained Altered Menta: No Sepsis Screen: No Definite Risk SIRS Temperature: Pulse: 102 Respiratory Rate: 18 Laboratory Tests 06/14/20 20:30: White Blood Count 12.0H Blood Pressure 190 /102 Mean: 131 Laboratory Tests 06/14/20 20:30: Creatinine 0.78, INR Comment 0.9, Platelet Count 353, Total Bilirubin 0.4 (DAREN QUINTEROS,MED STUDENT) Results/Orders Lab Results Laboratory Tests Test 06/14/20 20:30 06/14/20 20:55 Range/Units White Blood Count 12.0 H 4.3-11.0 10^3/uL Red Blood Count 4.87 3.80-5.11 10^6/uL Hemoglobin 14.9 11.5-16.0 g/dL Hematocrit 48 35-52 % Mean Corpuscular Volume 98 80-99 fL Mean Corpuscular Hemoglobin 31 25-34 pg Mean Corpuscular Hemoglobin Concent 31 L 32-36 g/dL Red Cell Distribution Width 13.3 10.0-14.5 % Platelet Count 353 130-400 10^3/uL Mean Platelet Volume 11.4 9.0-12.2 fL Immature Granulocyte % (Auto) 0 % Neutrophils (%) (Auto) 72 42-75 % Lymphocytes (%) (Auto) 20 12-44 % Monocytes (%) (Auto) 5 0-12 % Eosinophils (%) (Auto) 2 0-10 % Basophils (%) (Auto) 0 0-10 % Neutrophils # (Auto) 8.6 H 1.8-7.8 10^3/uL Lymphocytes # (Auto) 2.5 1.0-4.0 10^3/uL Monocytes # (Auto) 0.6 0.0-1.0 10^3/uL Eosinophils # (Auto) 0.3 0.0-0.3 10^3/uL Basophils # (Auto) 0.1 0.0-0.1 10^3/uL Immature Granulocyte # (Auto) 0.0 0.0-0.1 10^3/uL Prothrombin Time 12.3 12.2-14.7 SEC INR Comment 0.9 0.8-1.4 Sodium Level 142 135-145 MMOL/L Potassium Level 4.4 3.6-5.0 MMOL/L Chloride Level 101 98-107 MMOL/L Carbon Dioxide Level 26 21-32 MMOL/L Anion Gap 15 H 5-14 MMOL/L Blood Urea Nitrogen 16 7-18 MG/DL Creatinine 0.78 0.60-1.30 MG/DL Estimat Glomerular Filtration Rate > 60 BUN/Creatinine Ratio 21 Glucose Level 166 H 70-105 MG/DL Calcium Level 9.9 8.5-10.1 MG/DL Corrected Calcium 9.7 8.5-10.1 MG/DL Total Bilirubin 0.4 0.1-1.0 MG/DL Aspartate Amino Transf (AST/SGOT) 30 5-34 U/L Alanine Aminotransferase (ALT/SGPT) 48 0-55 U/L Alkaline Phosphatase 123 40-136 U/L Total Protein 7.3 6.4-8.2 GM/DL Albumin 4.3 3.2-4.5 GM/DL Urine Color RED H Urine Clarity TURBID Urine pH 7.5 5-9 Urine Specific [place] 1.025 H 1.016-1.022 Urine Protein 3+ H NEGATIVE Urine Glucose (UA) NEGATIVE NEGATIVE Urine Ketones TRACE H NEGATIVE Urine Nitrite NEGATIVE NEGATIVE Urine Bilirubin 1+ H NEGATIVE Urine Urobilinogen 0.2 < = 1.0 MG/DL Urine Leukocyte Esterase TRACE H NEGATIVE Urine RBC (Auto) 3+ H NEGATIVE Urine RBC TNTC H /HPF Urine WBC 0-2 /HPF Urine Squamous Epithelial Cells RARE /HPF Urine Crystals NONE /LPF Urine Bacteria TRACE /HPF Urine Casts NONE /LPF Urine Mucus NEGATIVE /LPF Urine Culture Indicated YES (FEMI CARTER MD) My Orders Orders - FEMI CARTER MD Bladder Scan (06/14/20 20:53) Hyoscyamine Sl Tablet (Levsin Sl Tablet) (06/14/20 21:30) Phenazopyridine Tablet (Pyridium Tablet) (06/14/20 21:30) Ct Abd/Pelvis Wo(Kidney Stone) (06/14/20 21:40) (FEMI CARTER MD) Medications Given in ED Current Medications Medications Dose Ordered Sig/Shama Route Start Time Stop Time Status Last Admin Dose Admin Hyoscyamine Sulfate 0.25 mg ONCE ONCE SL 06/14/20 21:30 06/14/20 21:31 DC 06/14/20 21:38 0.25 MG Phenazopyridine HCl 200 mg ONCE ONCE PO 06/14/20 21:30 06/14/20 21:31 DC 06/14/20 21:38 200 MG (FEMI CARTER MD) Vital Signs/I&O 06/14/20 06/14/20 20:15 23:38 Temp 36.6 36.6 Pulse 102 97 Resp 18 17 B/P (MAP) 190/102 (131) 147/102 (131) Pulse Ox 96 97 O2 Delivery Room Air Room Air (FEMI CARTER MD) Vital Signs/I&O Capillary Refill : Less Than 3 Seconds (DAREN QUINTEROS,MED STUDENT) Blood Pressure Mean: 131 Progress Note : Progress Note Patient was seen and examined. Bladder spasming and pain was treated with Levsin and Pyridium. UA demonstrated hematuria but no significant pyuria. It is possible patient has passed or is passing a ureteral stone. CT to evaluate for ureteral or bladder stones was offered. Patient would like to proceed to determine if there is a stone requiring intervention. CT revealed no stones in the ureter or bladder, only in the right kidney. Symptoms were improving. Patient was also hydrated with a liter of IV fluid. See discharge instructions. (FEMI CARTER MD) Diagnostic Imaging Diagonstic Imaging: CT Plain Films/CT/US/NM/MRI: abdomen, pelvis Comments Numerous small kidney stones in the right kidney. Otherwise no significant abnormalities. CT viewed by me. Stat rad report reviewed. (FEMI CARTER MD) Departure Impression Primary Impression: Hematuria Qualified Codes: R31.9 - Hematuria, unspecified Additional Impression: Bladder spasms Disposition: 01 HOME, SELF-CARE Condition: Improved Departure-Patient Inst. Decision time for Depature: 23:26 (FEMI CARTER MD) Referrals: DARREN ROSENBAUM MD (PCP/Family) Primary Care Physician Patient Instructions: Blood in the Urine (Hematuria), Adult (DC) Add. Discharge Instructions: Follow-up with your primary care provider soon as possible. You should have another urinalysis performed in a week or 2 to ensure blood clears. You may use Levsin (hyoscyamine) up to 0.25 mg every 4 hours as needed for cramping. Return to care if you have worsening symptoms or develop new symptoms such as fever. A urine culture is in progress and can be reviewed with your primary care provider on Wednesday. All discharge instructions reviewed with patient and/or family. Voiced understanding. Medical Student Attestation and Attending Note: I have personally interviewed and examined this patient along with Daren Quinteros MS4. I have reviewed student documentation including history, physical, and assessments. I agree with the documentation except where otherwise noted. Exam: General: Alert, oriented, no acute distress, well developed HEENT: Normocephalic and atraumatic Heart: Regular rate and rhythm without murmur Lungs: Clear to auscultation bilaterally with normal effort Abdomen: Soft, nontender, nondistended, normal bowel sounds Neuropsych: Alert, oriented, no focal deficits Skin: Warm and dry without rashes (FEMI CARTER MD) Copy Copies To 1: DARREN ROSENBAUM MD, JOSEPH,MED STUDENT Jun 14, 2020 21:06 FEMI CARTER MD Jun 14, 2020 23:27
[2020-06-14 21:15] LABS: CLARITY,URINE TURBID; COLOR,URINE RED; GLUCOSE, URINE (UA) NEGATIVE (NEGATIVE); KETONES,URINE TRACE (NEGATIVE); LEUKOCYTE ESTERASE ,URINE TRACE (NEGATIVE); NITRITE,URINE NEGATIVE (NEGATIVE); PH,URINE 7.5 (5-9); PROTEIN,URINE 3+ (NEGATIVE)
[2020-06-14 21:26] LABS: BILIRUBIN,URINE 1+ (NEGATIVE); RBC,URINE TNTC /HPF
[2020-06-14] MEDS ORDERED: PHENAZOPYRIDINE 100 MG (PYRIDIUM) TABLET PO ONE (21:30)
[2020-06-14] MEDS ORDERED: HYOSCYAMINE 0.125 MG (LEVSIN) TAB SL ONE (21:30)
[2020-06-14 21:32] LABS: BACTERIA,URINE TRACE /HPF; SQUAMOUS EPITHELIAL CELL,UR RARE /HPF; WBC,URINE 0-2 /HPF
[2020-06-14 23:38] VITALS: BP 147/102
--- NOTE | 2020-06-15 06:14 | Diagnostic Imaging Report ---
PROCEDURE: CT urinary tract, rule out kidney stone. TECHNIQUE: Multiple contiguous axial images were obtained through the abdomen and pelvis without the use of intravenous contrast. Auto Exposure Controls were utilized during the CT exam to meet ALARA standards for radiation dose reduction. INDICATION: Flank pain. Evaluate for renal stone. COMPARISON: None. FINDINGS: The heart is unremarkable. The included lung bases are clear. No evidence of acute hydronephrosis or obstructing calculi. Nonobstructing calculi are seen in the right kidney measuring up to 3 mm. Parapelvic cysts are seen in the left kidney. The urinary bladder is nondistended. No bladder calculi are seen. There is hepatic steatosis. Focal fatty sparing is seen along the gallbladder fossa. The gallbladder is unremarkable. The spleen, pancreas, and adrenal glands have a normal appearance. There is no pathologically enlarged mesenteric or retroperitoneal adenopathy. The bowel loops are nondilated. There is no free fluid or free air. There is grade 1 anterolisthesis of L5 on S1. No acute fractures are seen in the abdomen and pelvis. There is calcified aortic and iliac atherosclerotic plaque without aneurysm. Multiple phleboliths are seen in the pelvis. There is no free air, loculated collection, or adenopathy in the pelvis. IMPRESSION: 1. No evidence of hydronephrosis or obstructing calculi. Nonobstructing calculi are seen in the right kidney measuring up to 3 mm. 2. Hepatic steatosis. Agree with overnight report. Dictated by: Dictated on workstation # [id number]
== END 2020-06-14 23:39 | disposition home or self-care (01) ==
LOC: EDUNIT# 20:06 → ER 20:09
DX: R31.9 Hematuria, unspecified (principal); N32.89 Other specified disorders of bladder; Z88.1 Allergy status to other antibiotic agents
CPT/HCPCS: 36415; 74176; 80053; 81000; 85025; 85610; 87088

== ENCOUNTER → 2021-04-28 | Outpatient (CLI) | payer MEDICARE, OTHER ==
--- NOTE | 2021-04-28 13:14 | Diagnostic Imaging Report ---
INDICATION: Routine screening. Comparison is made with prior mammogram 04/25/2020 and 04/24/2019. 2-D and 3-D bilateral screening mammography was performed with CAD. Scattered fibroglandular densities are identified bilaterally. There are benign calcifications scattered throughout both breasts. No mass or malignant-appearing microcalcifications are seen. Axillae are unremarkable. IMPRESSION: BI-RADS Category 2 No mammographic features suspicious for malignancy are identified. ACR BI-RADS Category 2: Benign findings. Result letter will be mailed to the patient. Note: At least 10% of breast cancer is not imaged by mammography. Dictated by: Dictated on workstation # [id number]
== END ==
LOC: RAD 09:13
PROVIDERS: ATTEND Family Medicine
DX: Z12.31 Encounter for screening mammogram for malignant neoplasm of breast (principal)
CPT/HCPCS: 77063; 77067

== ENCOUNTER 2021-05-04 10:27 | Emergency (ER) | payer MEDICARE, OTHER ==
[~2021-05-04] VITALS: Ht 157 cm; Wt 90.7 kg
--- NOTE | 2021-05-04 10:59 | ED General ---
General Chief Complaint: Dizziness/Syncope Stated Complaint: DIZZY Nursing Triage Note: Pt to ED via wheelchair c/t dizziness onset Wednesday. Pt believes it is related to her ears and reports a recent sinus infection Source of Information: Patient Exam Limitations: No Limitations (EDUAR ERIC APRN) History of Present Illness Date Seen by Provider: May 04, 2021 Time Seen by Provider: 10:57 Initial Comments To ER by wheelchair with reports of dizziness that began Wednesday. She believes it is related to a sinus infection, she did blow her nose once last week. She has an occasional slight cough. No fevers chills or shortness of breath no body aches. She typically gets sinus infections but does not have dizziness with them. She is been taking meclizine without any improvement. Timing/Duration: 1-2 Days Severity: Moderate Associated Systoms: Denies Symptoms (EDUAR ERIC APRN) Allergies and Home Medications Allergies Coded Allergies: amoxicillin (Verified Allergy, Severe, 05/27/18) clavulanic acid (Verified Allergy, Severe, 05/27/18) potato (Verified Allergy, Severe, 05/27/18) egg (Verified Allergy, Mild, 05/27/18) erythromycin base (Verified Allergy, Mild, 05/27/18) Patient Home Medication List Home Medication List Reviewed: Yes (EDUAR ERIC APRN) Diclofenac Potassium (Diclofenac Potassium) 50 Mg Tablet, 50 MG PO Q6H PRN for knee pain/swelling Prescribed by: MARY BETH TADEO on 09/23/15 1531 Metformin HCl (Metformin HCl) 500 Mg Tablet, 500 BID, (Reported) Entered as Reported by: MARTHA RODAS on 05/04/21 1129 Last Action: New Order [Antivert] , 25 MG 4 times a day Prescribed by: YONY MARISCAL on 05/27/18 1049 Review of Systems Review of Systems Constitutional: see HPI EENTM: see HPI Respiratory: no symptoms reported Cardiovascular: no symptoms reported Genitourinary: no symptoms reported Musculoskeletal: no symptoms reported Skin: no symptoms reported Psychiatric/Neurological: No Symptoms Reported; Denies Headache Hematologic/Lymphatic: No Symptoms Reported (EDUAR ERIC APRN) Past Djobips-Fcpuip-Iefvqo Hx Patient Social History Tobacco Use?: No Substance use?: No Alcohol Use?: No (EDUAR ERIC APRN) Immunizations Up To Date First/Initial COVID19 Vaccinat: J&J in January (EDUAR ERIC APRN) Seasonal Allergies Seasonal Allergies: Yes (EDUAR ERIC APRN) Past Medical History Hysterectomy, Orthopedic Respiratory: No Cardiac: No Neurological: No ([place], [place] spotted fever) Genitourinary: No Gastrointestinal: No Musculoskeletal: No Endocrine: No HEENT: No Cancer: No Psychosocial: No Integumentary: No (EDUAR ERIC APRN) Physical Exam Vital Signs Vital Signs - First Documented 05/04/21 10:38 Temp 35.7 Pulse 68 Resp 18 B/P (MAP) 195/89 (124) Pulse Ox 97 O2 Delivery Room Air (FEMI CARTER MD) Vital Signs Capillary Refill : Less Than 3 Seconds (EDUAR ERIC APRN) Height, Weight, BMI Height: 5'4.00" Weight: 190lbs. oz. 86.077154cs; 36.00 BMI Method:Estimated General Appearance: No Apparent Distress, WD/WN Eyes: Bilateral Eye Normal Inspection, Bilateral Eye PERRL, Bilateral Eye EOMI HEENT: PERRL/EOMI, TMs Normal, Normal ENT Inspection Neck: Full Range of Motion, Normal Inspection Respiratory: No Accessory Muscle Use, No Respiratory Distress Cardiovascular: Regular Rate, Rhythm, Normal Peripheral Pulses Gastrointestinal: Normal Bowel Sounds, Non Tender, Soft Extremity: Normal Capillary Refill, Normal Inspection Neurologic/Psychiatric: Alert, Oriented x3 Skin: Normal Color, Warm/Dry (EDUAR ERIC APRN) Progress/Results/Core Measures Suspected Sepsis SIRS Temperature: Pulse: 68 Respiratory Rate: 18 Laboratory Tests 05/04/21 11:02: White Blood Count 8.7 Blood Pressure 195 /89 Mean: 124 Laboratory Tests 05/04/21 11:02: Creatinine 0.81, Platelet Count 372 (EDUAR ERIC APRN) Results/Orders Lab Results Laboratory Tests Test 05/04/21 11:02 Range/Units White Blood Count 8.7 4.3-11.0 10^3/uL Red Blood Count 5.04 3.80-5.11 10^6/uL Hemoglobin 15.2 11.5-16.0 g/dL Hematocrit 48 35-52 % Mean Corpuscular Volume 94 80-99 fL Mean Corpuscular Hemoglobin 30 25-34 pg Mean Corpuscular Hemoglobin Concent 32 32-36 g/dL Red Cell Distribution Width 14.6 H 10.0-14.5 % Platelet Count 372 130-400 10^3/uL Mean Platelet Volume 10.9 9.0-12.2 fL Immature Granulocyte % (Auto) 0 % Neutrophils (%) (Auto) 77 H 42-75 % Lymphocytes (%) (Auto) 15 12-44 % Monocytes (%) (Auto) 6 0-12 % Eosinophils (%) (Auto) 1 0-10 % Basophils (%) (Auto) 1 0-10 % Neutrophils # (Auto) 6.7 1.8-7.8 10^3/uL Lymphocytes # (Auto) 1.3 1.0-4.0 10^3/uL Monocytes # (Auto) 0.5 0.0-1.0 10^3/uL Eosinophils # (Auto) 0.1 0.0-0.3 10^3/uL Basophils # (Auto) 0.0 0.0-0.1 10^3/uL Immature Granulocyte # (Auto) 0.0 0.0-0.1 10^3/uL Sodium Level 140 135-145 MMOL/L Potassium Level 4.5 3.6-5.0 MMOL/L Chloride Level 101 98-107 MMOL/L Carbon Dioxide Level 26 21-32 MMOL/L Anion Gap 13 5-14 MMOL/L Blood Urea Nitrogen 14 7-18 MG/DL Creatinine 0.81 0.60-1.30 MG/DL Estimat Glomerular Filtration Rate 69 BUN/Creatinine Ratio 17 Glucose Level 150 H 70-105 MG/DL Calcium Level 10.6 H 8.5-10.1 MG/DL (FEMI CARTER MD) Vital Signs/I&O 05/04/21 05/04/21 10:38 12:41 Temp 35.7 35.7 Pulse 68 63 Resp 18 18 B/P (MAP) 195/89 (124) 160/78 Pulse Ox 97 97 O2 Delivery Room Air Room Air (FEMI CARTER MD) Vital Signs/I&O Capillary Refill : Less Than 3 Seconds (EDUAR ERIC APRN) Blood Pressure Mean: 124 Departure Impression Primary Impression: Dizziness Disposition: 01 HOME, SELF-CARE Condition: Stable Departure-Patient Inst. Decision time for Depature: 12:23 (EDUAR ERIC APRN) Referrals: DARREN ROSENBAUM MD (PCP/Family) Primary Care Physician Patient Instructions: Dizziness, Adult ED ATTENDING PHYSICIAN NOTE: I was physically present as attending physician in the emergency department during the care of this patient, but I was not directly involved in the decision making or delivery of care for this patient. (FEMI CARTER MD) EDUAR ERIC APRN May 04, 2021 10:59 FEMI CARTER MD May 06, 2021 07:17
[2021-05-04] MEDS ORDERED: methylPREDNISolone 40 MG/ML (Solu-MEDROL) VIAL IV ONE (11:00)
[2021-05-04] MEDS ORDERED: MECLIZINE 25 MG (ANTIVERT) TAB PO ONE (11:00)
[2021-05-04 11:15] LABS: BASOPHILS % (AUTO) 1 % (0-10); EOSINOPHILS # (AUTO) 0.1 10^3/uL (0.0-0.3); EOSINOPHILS % (AUTO) 1 % (0-10); HEMATOCRIT 48 % (35-52); HEMOGLOBIN 15.2 g/dL (11.5-16.0); LYMPHOCYTES # (AUTO) 1.3 10^3/uL (1.0-4.0); LYMPHOCYTES % (AUTO) 15 % (12-44); MEAN CORPUSCULAR HEMOGLOBIN 30 pg (25-34); MEAN CORPUSCULAR HGB CONC 32 g/dL (32-36); MEAN CORPUSCULAR VOLUME 94 fL (80-99); MEAN PLATELET VOLUME 10.9 fL (9.0-12.2); MONOCYTES # (AUTO) 0.5 10^3/uL (0.0-1.0); MONOCYTES % (AUTO) 6 % (0-12); NEUTROPHILS # (AUTO) 6.7 10^3/uL (1.8-7.8); NEUTROPHILS % (AUTO) 77 % (42-75); PLATELET COUNT 372 10^3/uL (130-400); WHITE BLOOD COUNT 8.7 10^3/uL (4.3-11.0)
[2021-05-04] MEDS ORDERED: METF-397 (11:29)
[2021-05-04 11:35] LABS: POTASSIUM 4.5 MMOL/L (3.6-5.0)
[2021-05-04 11:36] LABS: CALCIUM 10.6 MG/DL (8.5-10.1)
[2021-05-04 11:41] LABS: CREATININE SERUM 0.81 MG/DL (0.60-1.30)
[2021-05-04] MEDS ORDERED: HOLD METFORMIN - RECEIVED CONTRAST 20 ML VIAL IV SCH (12:15)
[2021-05-04] MEDS ORDERED: NS 100 ML (IVPB) BAG IV ONE (12:15)
[2021-05-04] MEDS ORDERED: IOHEXOL 350 MG/ML 100 ML (OMNIPAQUE 350) VIAL IV ONE (12:15)
--- NOTE | 2021-05-04 12:22 | Diagnostic Imaging Report ---
PROCEDURE: CT angiography of the head and CT angiography of the neck with and without contrast. TECHNIQUE: Contiguous noncontrast images were obtained from the skull base through the vertex. After intravenous contrast administration, helical CT angiography of the neck was performed. Source data was reformatted into 3D MIP projections. Delayed post contrast acquisition was also obtained. Auto Exposure Controls were utilized during the CT exam to meet ALARA standards for radiation dose reduction. Date: May 04, 2021. Indication: 71-year-old female, dizziness. Comparison: MRI brain June 17, 2018. MR angiography of the head and neck June 17, 2018. Findings: The ventricles and additional CSF spaces are normal in size and configuration for patient age. There is no abnormal extra-axial fluid collection. There is no evidence of acute intracranial hemorrhage. There is no mass effect or midline shift. There is no abnormal intracranial enhancement. The visualized portions of the paranasal sinuses, mastoid air cells, and middle ears are well-aerated. There is a bovine aortic arch. The left common carotid artery is patent. There is calcified plaque at the proximal segment of the left internal carotid artery without high-grade internal carotid artery stenosis. There are calcifications of the cavernous segment of the left internal carotid artery. The left middle cerebral artery is patent. The left anterior cerebral artery is patent. The right anterior cerebral artery is patent. The right middle cerebral artery is patent. There are calcifications of the cavernous segment of the right internal carotid artery. There is retropharyngeal course of the right internal carotid artery. The right common carotid artery is patent. There is conventional origin of the left vertebral artery. The left vertebral artery is patent. The basilar artery is patent. There is a patent left posterior communicating artery. The left posterior cerebral artery is patent. There is a patent right posterior communicating artery. The right posterior cerebral artery is patent. The right vertebral artery is patent and conventional in origin. There is no identified aneurysm or dissection. The visualized portions of the lungs are grossly clear. There is no identified acute bony abnormality. Impression: 1. No identified acute intracranial abnormality. 2. Patent arterial head and neck vasculature without high-grade stenosis, occlusion, aneurysm, or dissection. Dictated by: Dictated on workstation # [id number]
[2021-05-04] MEDS ORDERED: SCOPOLAMINE 1.5 MG (TRANSDERM-SCOP) PATCH TD ONE (12:30)
[2021-05-04 12:41] VITALS: BP 160/78
== END 2021-05-04 12:41 | disposition home or self-care (01) ==
LOC: EDUNIT# 10:27 → ER 10:30
DX: R42 Dizziness and giddiness (principal)
CPT/HCPCS: 36415; 70496; 70498; 80048; 85025

== ENCOUNTER → 2022-04-29 | Outpatient (CLI) | payer MEDICARE, OTHER ==
[~2022-04-29] MED LIST changes: +METF-397
--- NOTE | 2022-04-29 11:19 | Diagnostic Imaging Report ---
INDICATION: Routine screening. COMPARISON: 04/28/2021 and 04/25/2020. TECHNIQUE: 2D and 3D bilateral screening mammography was performed with CAD. FINDINGS: Scattered fibroglandular densities are identified bilaterally. The parenchymal pattern appears stable. No mass or malignant-appearing microcalcifications are seen. There are scattered benign calcifications. The axillae are unremarkable. IMPRESSION: No mammographic features suspicious for malignancy are identified. ACR BI-RADS Category 2: Benign findings. Result letter will be mailed to the patient. Note: At least 10% of breast cancer is not imaged by mammography. Dictated by: Dictated on workstation # [id number]
== END ==
LOC: RAD 10:16
PROVIDERS: ATTEND Family Medicine
DX: Z12.31 Encounter for screening mammogram for malignant neoplasm of breast (principal)
CPT/HCPCS: 77063; 77067

== ENCOUNTER → 2022-05-14 | Outpatient (CLI) | payer MEDICARE, OTHER ==
--- NOTE | 2022-05-14 13:50 | Diagnostic Imaging Report ---
PROCEDURE: US Thyroid. TECHNIQUE: Multiple real-time grayscale images were obtained of the thyroid in various projections. INDICATION: Follow-up thyroid nodule. FINDINGS: Solid oval hypoechoic homogeneous nodule without calcification is again identified on the left. This measures 8 x 6 x 6 mm today. No additional nodules are demonstrated. The right lobe measures 4.5 x 1.3 x 1.7 cm. The left lobe measures 4.3 x 1.5 x 1.2 cm. IMPRESSION: Solitary oval hypoechoic well-circumscribed nodule without calcifications on the left is considered mildly suspicious. This is increased very slightly in size since previous exam. TI-RADS 3 Dictated by: Dictated on workstation # [id number]
== END ==
LOC: RAD 10:06
PROVIDERS: ATTEND Family Medicine
DX: E04.1 Nontoxic single thyroid nodule (principal)
CPT/HCPCS: 76536

== ENCOUNTER → 2022-10-09 | Outpatient (CLI) | payer MEDICARE, OTHER ==
--- NOTE | 2022-10-09 07:55 | Diagnostic Imaging Report ---
PROCEDURE: US Gallbladder. TECHNIQUE: Multiple real-time grayscale images were obtained over the right upper quadrant in various projections. INDICATION: Abdominal pain Liver measures 19 cm in length with increased echogenicity indicative of steatosis. No focal hepatic abnormality identified. Gallbladder has a normal appearance and there is no biliary ductal dilatation. Overlying bowel obscures the pancreas and aorta. No inferior vena caval or right renal abnormality is identified. No free fluid is noted. IMPRESSION: Mild hepatomegaly and steatosis without other evidence of acute abnormality seen in the right upper quadrant of the abdomen. Dictated by: Dictated on workstation # [id number]
== END ==
LOC: RAD 06:29
PROVIDERS: ATTEND Family Medicine
DX: K76.0 Fatty (change of) liver, not elsewhere classified (principal); R16.0 Hepatomegaly, not elsewhere classified
CPT/HCPCS: 76705

== ENCOUNTER → 2022-11-23 | Outpatient (CLI) | payer MEDICARE, OTHER ==
--- NOTE | 2022-11-23 20:36 | Diagnostic Imaging Report ---
PROCEDURE: US Thyroid. TECHNIQUE: Multiple real-time grayscale images were obtained of the thyroid in various projections. INDICATION: Thyroid nodules. COMPARISON with study 05/14/2022. The right thyroid lobe is 4.1 cm. A midline isthmic subtle hypoechoic nodule measured 8 mm. The left thyroid lobe is 4 cm and contains an 8 mm lower pole solid iso to slightly hypoechoic nodule, unchanged. IMPRESSION: Subcentimeter thyroid nodules with no dominant or suspicious lesion. The size and imaging characteristics are such that no dedicated follow-up is recommended based upon the sonographic appearance. Dictated by: Dictated on workstation # [id number]
== END ==
LOC: RAD 10:20
PROVIDERS: ATTEND Family Medicine
DX: E04.2 Nontoxic multinodular goiter (principal)
CPT/HCPCS: 76536

== ENCOUNTER → 2023-04-30 | Outpatient (CLI) | payer MEDICARE, OTHER ==
--- NOTE | 2023-05-03 10:11 | Diagnostic Imaging Report ---
INDICATION: Routine screening. COMPARISON: 04/29/2022 and 04/28/2021. TECHNIQUE: 2D and 3D bilateral screening mammography was performed with CAD. FINDINGS: Scattered fibroglandular densities are identified bilaterally. The parenchymal pattern is stable. No mass or malignant-appearing microcalcifications are seen. The axillae are unremarkable. IMPRESSION: No mammographic features suspicious for malignancy are identified. ACR BI-RADS Category 1: Negative. Result letter will be mailed to the patient. Note: At least 10% of breast cancer is not imaged by mammography. Dictated by: Dictated on workstation # [id number]
== END ==
LOC: RAD 10:37
PROVIDERS: ATTEND Family Medicine
DX: Z12.31 Encounter for screening mammogram for malignant neoplasm of breast (principal)
CPT/HCPCS: 77063; 77067